=== PATIENT | female | born 1970 | race Caucasian/White ===

== ENCOUNTER 2017-01-10 16:05 | Outpatient (CLI) | payer OTHER ==
--- NOTE | 2017-01-12 10:10 | Mammography Report ---
DIGITAL BILATERAL SCREENING MAMMOGRAM: 01/10/2017 COMPARISON STUDY: Mammogram 11/25/2015. INDICATION: Screening mammography. TECHNIQUE: Routine CC and MLO projections were obtained of the breasts. FINDINGS: Parenchymal tissue within both breasts is extremely dense, which lowers the sensitivity of mammography; however, there are no dominant masses, suspicious microcalcifications, or secondary sig ns of malignancy. In comparison to the previous studies, there are no significant changes. There is a biopsy clip in the left breast. IMPRESSION: No mammographic evidence of malignancy. PLAN: Screening mammography is recommended annually. BIRADS CATEGORY 2 - BENIGN FINDINGS. STANDARD QUALIFYING STATEMENTS 1. This examination was reviewed with the aid of Computed-Aided Detection (CAD). 2. A negative or benign imaging report should not delay biopsy if clinically suspicious findings are present. Consider surgical consultation if warranted. More than 5% of cancers are not identified by i maging. 3. Dense breasts may obscure an underlying neoplasm. JOB #: [id number] EXT JOB #:[id number]
== END 2017-01-10 16:06 | disposition home or self-care (01) ==
LOC: DI 16:05
PROVIDERS: ATTEND Physician Assistant Medical
DX: Z12.31 Encounter for screening mammogram for malignant neoplasm of breast (principal)
CPT/HCPCS: 77067

== ENCOUNTER 2018-02-14 13:52 | Outpatient (CLI) | payer OTHER ==
--- NOTE | 2018-02-15 08:44 | Mammography Report ---
Reason: SCREENING MAMMO Procedure Date: 02/14/2018 Accession Number: [id number] / [id number] Procedure: CHRISSY - Screening Mammo w/Martin CPT Code: FULL RESULT: EXAM: Screening Mammo w/Martin DATE: 02/14/2018 2:21 PM CLINICAL HISTORY: Screening mammogram. History of left breast biopsy. TECHNIQUE: Bilateral CC and MLO views were obtained. COMPARISON: 01/10/2017 through 12/30/2009. FINDINGS: The breasts demonstrate heterogeneously dense fibroglandular parenchyma bilaterally. A biopsy clip is seen in the left breast. No suspicious masses, clustered microcalcifications, or regions of architectural distortion are identified. IMPRESSION: Benign findings RECOMMENDATION: Routine annual screening unless otherwise clinically indicated. BIRADS CATEGORY 2: Benign findings STANDARD QUALIFYING STATEMENTS: 1. This examination was not reviewed with the aid of Computer-Aided Detection (CAD). 2. A negative or benign imaging report should not preclude biopsy if clinically suspicious findings are present. 3. Dense breasts may obscure an underlying neoplasm. 4. This examination was reviewed with the aid of 3D breast imaging (tomosynthesis).
== END 2018-02-14 13:53 | disposition home or self-care (01) ==
LOC: DI 13:52
DX: Z12.31 Encounter for screening mammogram for malignant neoplasm of breast (principal)
CPT/HCPCS: 77063; 77067

== ENCOUNTER 2018-07-13 11:44 | Outpatient (CLI) | payer OTHER ==
--- NOTE | 2018-07-13 14:20 | XRAY Report ---
Reason: COUGH Procedure Date: 07/13/2018 Accession Number: [id number] / [id number] Procedure: WCP - Chest 2 View X-Ray CPT Code: 51487 FULL RESULT: EXAM: CHEST RADIOGRAPHY EXAM DATE: 07/13/2018 12:05 PM. CLINICAL HISTORY: COUGH. COMPARISON: None. TECHNIQUE: 2 views. FINDINGS: Lungs/Pleura: No focal opacities evident. No pleural effusion. No pneumothorax. Normal volumes. Mediastinum: Heart and mediastinal contours are unremarkable. Other: None. IMPRESSION: Normal 2-view chest radiography. RADIA
== END 2018-07-13 11:45 | disposition home or self-care (01) ==
LOC: DI.WCP 11:44
PROVIDERS: ATTEND Family Medicine
DX: R05 Cough (principal)
CPT/HCPCS: 71046

== ENCOUNTER 2019-06-11 08:07 | Outpatient (CLI) | payer BC, OTHER ==
[2019-06-11 12:21] LABS: BASOPHILS # (AUTO) 0.1 10^3/uL (0.0-0.1); BASOPHILS % (AUTO) 1.1 %; EOSINOPHILS # (AUTO) 0.2 10^3/uL (0.0-0.7); EOSINOPHILS % (AUTO) 4.3 %; HGB - HEMOGLOBIN 10.7 g/dL (12.0-16.0); LYMPHOCYTES # (AUTO) 1.5 10^3/uL (1.5-3.5); LYMPHOCYTES % (AUTO) 26.8 %; MEAN CORPUSCULAR HEMOGLOBIN 23.4 pg (27.0-31.0); MEAN CORPUSCULAR HGB CONC 31.7 g/dL (32.0-36.0); MONOCYTES # (AUTO) 0.6 10^3/uL (0.0-1.0); MONOCYTES % (AUTO) 10.5 %; NEUTROPHILS # (AUTO) 3.2 10^3/uL (1.5-6.6); NEUTROPHILS % (AUTO) 56.9 %; PLT - PLATELET COUNT 422 10^3/uL (130-450); RED BLOOD COUNT 4.57 10^6/uL (4.20-5.40); RED CELL DISTRIBUTION WIDTH 17.2 % (12.0-15.0); WHITE BLOOD COUNT 5.6 x10^3/uL (4.8-10.8)
[2019-06-11 12:37] LABS: ALBUMIN/GLOBULIN RATIO 1.3 (1.0-2.2); ALKALINE PHOSPHATASE 39 IU/L (42-121); ALT ALANINE AMINOTRANSFERASE 13 IU/L (10-60); AST ASPARTATE AMINOTRANSFERASE 18 IU/L (10-42); BILIRUBIN,TOTAL 0.9 mg/dL (0.2-1.0); BUN - BLOOD UREA NITROGEN 11 mg/dL (6-20); CALCIUM 9.1 mg/dL (8.5-10.3); CARBON DIOXIDE - CO2 26 mmol/L (21-32); CHLORIDE 105 mmol/L (101-111); CHOL/HDL RATIO 3.1 (<4.4); CHOLESTEROL 273 mg/dL; CREATININE 0.7 mg/dL (0.4-1.0); GLUCOSE 92 mg/dL (70-100); HDL CHOLESTEROL 87 mg/dL; LDL CHOLESTEROL,CALCULATED 165 mg/dL; LDL/HDL RATIO 1.9 (<4.4); SODIUM 139 mmol/L (135-145); TOTAL PROTEIN 7.2 g/dL (6.7-8.2); VLDL CHOLESTEROL 21 mg/dL
== END 2019-06-11 23:59 | disposition home or self-care (01) ==
LOC: LAB.WCP 08:07
PROVIDERS: ATTEND Physician Assistant Medical
DX: Z00.00 Encounter for general adult medical examination without abnormal findings (principal); E78.5 Hyperlipidemia, unspecified
CPT/HCPCS: 36415; 80053; 80061; 83721; 84443; 85025

== ENCOUNTER 2019-06-15 11:40 | Outpatient (CLI) | payer BC ==
[2019-06-15 13:45] LABS: H. PYLORIS ANTIGEN STL NEGATIVE (Negative)
== END 2019-06-15 23:59 | disposition home or self-care (01) ==
LOC: LAB.R 11:40
PROVIDERS: ATTEND Physician Assistant Medical
DX: K52.9 Noninfective gastroenteritis and colitis, unspecified (principal)
CPT/HCPCS: 83630; 87015; 87045; 87046; 87177; 87209; 87272; 87329; 87338; 87493

== ENCOUNTER 2019-08-15 08:00 | Outpatient (CLI) | payer BC ==
[2019-08-15 13:55] LABS: BASOPHILS # (AUTO) 0.1 10^3/uL (0.0-0.1); BASOPHILS % (AUTO) 1.2 %; EOSINOPHILS # (AUTO) 0.4 10^3/uL (0.0-0.7); EOSINOPHILS % (AUTO) 7.3 %; LYMPHOCYTES # (AUTO) 1.7 10^3/uL (1.5-3.5); LYMPHOCYTES % (AUTO) 34.7 %; MEAN CORPUSCULAR HGB CONC 28.5 g/dL (32.0-36.0); MEAN CORPUSCULAR VOLUME 73.7 fL (81.0-99.0); MEAN PLATELET VOLUME 10.1 fL (7.9-10.8); MONOCYTES # (AUTO) 0.5 10^3/uL (0.0-1.0); MONOCYTES % (AUTO) 10.8 %; NEUTROPHILS # (AUTO) 2.2 10^3/uL (1.5-6.6); NEUTROPHILS % (AUTO) 45.8 %; PLT - PLATELET COUNT 362 10^3/uL (130-450); RED BLOOD COUNT 4.76 10^6/uL (4.20-5.40); RED CELL DISTRIBUTION WIDTH 16.9 % (12.0-15.0); WHITE BLOOD COUNT 4.8 x10^3/uL (4.8-10.8)
[2019-08-15 14:03] LABS: CHOL/HDL RATIO 2.6 (<4.4); CHOLESTEROL 262 mg/dL; HDL CHOLESTEROL 102 mg/dL; LDL CHOLESTEROL,CALCULATED 141 mg/dL; LDL/HDL RATIO 1.4 (<4.4); VLDL CHOLESTEROL 19 mg/dL
[2019-08-15 14:09] LABS: FERRITIN 1.9 ng/mL (11.0-306.8)
[2019-08-15 14:15] LABS: FOLATE 21.68 ng/mL (5.90 - >24.8)
== END 2019-08-15 23:59 | disposition home or self-care (01) ==
LOC: LAB.WCP 08:00
PROVIDERS: ATTEND Physician Assistant Medical
DX: E78.5 Hyperlipidemia, unspecified (principal); D64.9 Anemia, unspecified
CPT/HCPCS: 36415; 80061; 82607; 82728; 82746; 83721; 85025

== ENCOUNTER 2020-01-02 07:00 | Outpatient (CLI) | payer BC ==
[2020-01-02 11:22] LABS: BASOPHILS # (AUTO) 0.1 10^3/uL (0.0-0.1); BASOPHILS % (AUTO) 1.1 %; EOSINOPHILS # (AUTO) 0.3 10^3/uL (0.0-0.7); LYMPHOCYTES # (AUTO) 1.3 10^3/uL (1.5-3.5); MEAN CORPUSCULAR HEMOGLOBIN 29.3 pg (27.0-31.0); MEAN CORPUSCULAR HGB CONC 32.9 g/dL (32.0-36.0); MEAN CORPUSCULAR VOLUME 88.9 fL (81.0-99.0); MONOCYTES # (AUTO) 0.5 10^3/uL (0.0-1.0); MONOCYTES % (AUTO) 9.9 %; NEUTROPHILS # (AUTO) 3.2 10^3/uL (1.5-6.6); NEUTROPHILS % (AUTO) 59.4 %; PLT - PLATELET COUNT 274 10^3/uL (130-450); RED BLOOD COUNT 4.78 10^6/uL (4.20-5.40); RED CELL DISTRIBUTION WIDTH 14.2 % (12.0-15.0); WHITE BLOOD COUNT 5.4 x10^3/uL (4.8-10.8)
[2020-01-02 12:11] LABS: % IRON SATURATION 21 % (20-50); IRON 83 ug/dL (28-170); TOTAL IRON BINDING CAPACITY 403 ug/dL (250-450); TRANSFERRIN 288 mg/dL (192-382)
== END 2020-01-02 23:59 | disposition home or self-care (01) ==
LOC: LAB.WCP 07:00
PROVIDERS: ATTEND Physician Assistant Medical
DX: D64.9 Anemia, unspecified (principal)
CPT/HCPCS: 36415; 82728; 83540; 84466; 85025

== ENCOUNTER 2020-01-20 08:00 | Outpatient (CLI) | payer BC ==
[2020-01-20 17:59] LABS: BASOPHILS # (AUTO) 0.1 10^3/uL (0.0-0.1); BASOPHILS % (AUTO) 0.6 %; EOSINOPHILS # (AUTO) 0.2 10^3/uL (0.0-0.7); LYMPHOCYTES # (AUTO) 1.8 10^3/uL (1.5-3.5); LYMPHOCYTES % (AUTO) 15.9 %; MEAN CORPUSCULAR HEMOGLOBIN 29.3 pg (27.0-31.0); MEAN CORPUSCULAR HGB CONC 32.9 g/dL (32.0-36.0); MEAN CORPUSCULAR VOLUME 89.1 fL (81.0-99.0); MEAN PLATELET VOLUME 9.7 fL (7.9-10.8); MONOCYTES % (AUTO) 8.9 %; NEUTROPHILS # (AUTO) 8.1 10^3/uL (1.5-6.6); NEUTROPHILS % (AUTO) 72.2 %; PLT - PLATELET COUNT 308 10^3/uL (130-450); RED BLOOD COUNT 4.78 10^6/uL (4.20-5.40); RED CELL DISTRIBUTION WIDTH 13.9 % (12.0-15.0); WHITE BLOOD COUNT 11.3 x10^3/uL (4.8-10.8)
[2020-01-20 18:05] LABS: ALBUMIN 4.4 g/dL (3.2-5.5); ALBUMIN/GLOBULIN RATIO 1.4 (1.0-2.2); BILIRUBIN,TOTAL 1.4 mg/dL (0.2-1.0); CALCIUM 9.1 mg/dL (8.5-10.3); CREATININE 0.8 mg/dL (0.4-1.0); CRP - C-REACTIVE PROTEIN 2.9 mg/dL (0-1.0); TOTAL PROTEIN 7.5 g/dL (6.7-8.2)
== END 2020-01-20 23:59 | disposition home or self-care (01) ==
LOC: LAB.WCP 08:00
PROVIDERS: ATTEND Family Medicine
DX: R10.9 Unspecified abdominal pain (principal)
CPT/HCPCS: 36415; 80053; 85025; 85651; 86140

== ENCOUNTER 2020-01-23 17:03 | Outpatient (CLI) | payer BC ==
[2020-01-23] MEDS ORDERED: IOVERSOL 320 100 ML VIAL IVP ONE ×2 (17:15→19:29)
[2020-01-23] MEDS ORDERED: IOVERSOL 320 50 ML VIAL ONE (17:15)
--- NOTE | 2020-01-23 18:26 | CT Report ---
PROCEDURE: Abdomen/Pelvis W INDICATIONS: ABD PAIN, RLQ CONTRAST: IV CONTRAST: Optiray 320 ml: 100 PO CONTRAST: Optiray 320 ml50 TECHNIQUE: After the administration of oral and IV contrast, 5 mm thick sections acquired from the diaphragms to the symphysis. 5 mm thick coronal and sagittal reformats were acquired. For radiation dose reducti on, the following was used: automated exposure control, adjustment of mA and/or kV according to carson ent size. COMPARISON: Ultrasound abdomen 09/03/2014 FINDINGS: Image quality: Excellent. ABDOMEN: Lung bases: Lung bases are clear. Heart size is normal. Solid organs: Liver and spleen are normal in size and enhancement. Gallbladder is contracted and gr ossly unremarkable Biliary system is non dilated. Pancreas enhances normally. No adrenal nodules. Kidneys demonstrate normal size and enhancement, without hydronephrosis. Peritoneum and bowel: Bowel loops are nonobstructive. Portions of the appendix are enlarged measurin g 8 mm. Appendiceal stranding is present. No evidence of perforation or periappendiceal abscess. No free flui d or air. Nodes and vessels: No retroperitoneal or mesenteric adenopathy by size criteria. Aorta and inferior vena cava are normal in size. Miscellaneous: No ventral hernias. PELVIS: Genitourinary: Bladder wall thickness is normal. Uterus is markedly enlarged with areas of loculati on. Miscellaneous: No inguinal hernias or adenopathy. Bones: No suspicious bony lesions. No vertebral body compression fractures. IMPRESSION: 1. Portions of the appendix are enlarged with periappendiceal inflammation most consistent with appen dicitis. No evidence of perforation. 2. Enlarged lobulated uterus suggestive of fibroids. Pelvic ultrasound is recommended for further pamela luation. The above findings were discussed with Dr. Merry Gomez on 01/23/2020 at 6:22 PM. Reviewed by: Luz Martinez MD on 01/23/2020 6:25 PM PST Approved by: Luz Martinez MD on 01/23/2020 6:25 PM PST Station ID: [id number]
== END 2020-01-23 17:04 | disposition home or self-care (01) ==
LOC: DI 17:03
PROVIDERS: ATTEND Family Medicine
DX: R93.5 Abnormal findings on diagnostic imaging of other abdominal regions, including retroperitoneum (principal); N85.2 Hypertrophy of uterus
CPT/HCPCS: 74177

== ENCOUNTER 2020-01-23 18:31 | Day surgery (SDC) | payer BC ==
--- NOTE | 2020-01-23 18:35 | ED Physician Documentation ---
PD HPI ABD PAIN - Stated complaint Stated Complaint: ABD PX - History obtained from History obtained from: Patient - History of Present Illness Timing - onset: How many days ago (3) Timing - duration: Days (3) Timing - details: Gradual onset (worst pain Monday (3 days ago) but continues still. Seen in office Monday with lab showing elevated WBC. Seen today with persistent tender RLQ, and had outpt CT, with result of acute appendicitis. PMD notified and had her come from DI to ER. Last ate at 1 pm.), Still present Quality: Aching, Pain Location: RLQ Radiation: No: Chest, Lower back Improved by: No: Eating Worsened by: No: Eating Associated symptoms: Nausea. No: Fever, Vomiting, Diarrhea Recently seen: Clinic (today in office) Review of Systems Constitutional: denies: Fever Nose: denies: Rhinorrhea / runny nose, Congestion Throat: denies: Sore throat Respiratory: denies: Cough GI: reports: Abdominal Pain. denies: Vomiting, Diarrhea : denies: Dysuria PD PAST MEDICAL HISTORY - Past Medical History Past Medical History: No Cardiovascular: None Respiratory: None GI: None PD ED PE NORMAL - Vitals Vital signs reviewed: Yes - General General: Alert and oriented X 3, Well developed/nourished - Abdomen Abdomen: Soft, Non distended, Other (RLQ tender with guarding. ) - Derm Derm: Normal color, Warm and dry - Extremities Extremities: Normal ROM s pain - Neuro Neuro: Alert and oriented X 3, No motor deficit, Normal speech - Psych Psych: Normal mood Results - Vitals Vitals: Vital Signs - 24 hr 01/23/20 01/23/20 18:35 18:59 Temperature 36.6 C Heart Rate 54 L Respiratory 18 Rate Blood Pressure 155/78 H O2 Saturation 97 Oxygen O2 Source Room air - Labs Labs: Laboratory Tests 01/23/20 19:15 WBC 8.2 RBC 4.31 Hgb 12.7 Hct 38.8 MCV 90.0 MCH 29.5 MCHC 32.7 RDW 13.9 Plt Count 305 MPV 9.6 Neut # (Auto) 4.7 Lymph # (Auto) 2.2 [place] # (Auto) 0.8 Eos # (Auto) 0.3 Baso # (Auto) 0.1 Absolute Nucleated RBC 0.00 Nucleated RBC % 0.0 PD MEDICAL DECISION MAKING - ED course Complexity details: considered differential (Contacted by her primary care who had gotten a call with diagnosis of appendicitis and referred the patient to the ER. At this point we will initiate IVs and get basic labs and presumably Covid test in preparation for appendectomy. I talked with Dr. Dugan who said she would come in to see the pt), d/w patient, d/w peoples[facility] consultant (Dr. Gill who will come in and see the patient.) ED course: Patient would like to talk with the surgeon prior to initiating the OR crew. Departure - Departure Disposition: ED Transfer to [facility] Clinical Impression: RLQ abdominal pain Appendicitis Qualifiers: Appendicitis type: acute appendicitis Acute appendicitis type: unspecified acute appendicitis type Qualified Code(s): K35.80 - Unspecified acute appendicitis Condition: Stable Record reviewed to determine appropriate education?: Yes
[2020-01-23] MEDS ORDERED: SODIUM CHLORIDE 0.9% 1,000 ML IV STA (18:47)
[2020-01-23] MEDS ORDERED: SUGAMMADEX 200 MG/2 ML VIAL IVP ONE ×2 (19:08→21:19)
[2020-01-23] MEDS ORDERED: MIDAZOLAM 2 MG/2 ML VIAL IVP ONE (19:08)
[2020-01-23] MEDS ORDERED: ROCURONIUM 50 MG/5 ML VIAL IVP ONE (19:08)
[2020-01-23] MEDS ORDERED: SUCCINYLCHOLINE 200 MG/10 ML VIAL IVP ONE (19:08)
[2020-01-23] MEDS ORDERED: fentaNYL 100 MCG/2 ML VIAL IVP ONE (19:08)
[2020-01-23] MEDS ORDERED: HYDROmorphone 1 MG/ML CARPUJECT IVP ONE (19:08)
[2020-01-23] MEDS ORDERED: DEXAMETHASONE 4 MG/ML VIAL IVP ONE (19:08)
[2020-01-23] MEDS ORDERED: ONDANSETRON 4 MG/2 ML VIAL IVP ONE (19:08)
[2020-01-23] MEDS ORDERED: PROPOFOL 200 MG/20 ML VIAL IVP ONE (19:08)
[2020-01-23] MEDS ORDERED: ACETAMINOPHEN 1,000 MG/100 ML 100 ML IV ONE (19:08)
[2020-01-23 19:22] LABS: BASOPHILS # (AUTO) 0.1 10^3/uL (0.0-0.1); BASOPHILS % (AUTO) 0.9 %; EOSINOPHILS # (AUTO) 0.3 10^3/uL (0.0-0.7); EOSINOPHILS % (AUTO) 4.2 %; HGB - HEMOGLOBIN 12.7 g/dL (12.0-16.0); LYMPHOCYTES # (AUTO) 2.2 10^3/uL (1.5-3.5); MEAN CORPUSCULAR HEMOGLOBIN 29.5 pg (27.0-31.0); MEAN CORPUSCULAR HGB CONC 32.7 g/dL (32.0-36.0); MEAN PLATELET VOLUME 9.6 fL (7.9-10.8); MONOCYTES # (AUTO) 0.8 10^3/uL (0.0-1.0); MONOCYTES % (AUTO) 9.8 %; NEUTROPHILS # (AUTO) 4.7 10^3/uL (1.5-6.6); NEUTROPHILS % (AUTO) 57.6 %; PLT - PLATELET COUNT 305 10^3/uL (130-450); RED BLOOD COUNT 4.31 10^6/uL (4.20-5.40); RED CELL DISTRIBUTION WIDTH 13.9 % (12.0-15.0); WHITE BLOOD COUNT 8.2 x10^3/uL (4.8-10.8)
[2020-01-23] MEDS ORDERED: PIPERACILLIN/TAZOBACTAM 3.375 GM in SODIUM CHLORIDE 0.9% MINIBAG 100 ML IV STA (19:25)
[2020-01-23] MEDS ORDERED: oxyCODONE/ACET 5/325 Prepack 4 PO STA (19:25)
[2020-01-23] MEDS ORDERED: ONDANSETRON ODT 4 MG Prepack 2 TL PRN (19:26)
--- NOTE | 2020-01-23 19:27 | HISTORY & PHYSICAL EXAMINATION ---
HPI - Admitted From Admitted from: ED - History Obtained From Records Reviewed: Other (ER MD) History obtained from: Patient Exam limitations: No limitations - History of Present Illness Severity at the worst: reports: Mild Pain Quality: reports: Sharp, Aching, Cramping Context-Pain started w/: reports: Rest Timing: reports: Gradual onset Duration: reports: Days: (about 4 days) Improved with: reports: Nothing Worsened by: reports: Movement Associated symptoms: denies: Nausea, Vomiting HPI Comment/Other: Judy is a pleasant 50-year-old lady who reports she began having abdominal pain Monday evening or Monday. She was seen by Dr. Gomez today after she did not improve. Dr. Gomez ordered a CT scan of the abdomen pelvis that revealed acute appendicitis and the patient was instructed to come to the emergency department. I have been consulted for definitive management. PMH/PSH - Past Medical History Cardiovascular: positive: None Respiratory: positive: None GI: positive: None MRSA Hx?: No Social & Family Hx - Living Situation Living Arrangement: At home Living Situation: With spouse/s.o. - Social History Does the pt smoke?: No Review of Systems - Constitutional Constitutional: reports: Poor appetite - Eyes Eyes: denies: Pain, Irritation - Ears, Nose & Throat Ears, Nose & Throat: denies: Tinnitus, Vertigo - Cardiovascular Cariovascular: denies: Irregular heart rate, Palpitations - Respiratory Respiratory: denies: Cough, Sputum production, Wheezing - Gastrointestinal Gastrointestinal: reports: Abdominal pain. denies: Constipation, Diarrhea, Change in bowel habits, Rectal bleeding, Black stools, Bloody stools, Bile emesis - Genitourinary Genitourinary: denies: Frequency, Urgency - Musculoskeletal Musculoskeletal: denies: Muscle pain, Back pain - Integumentary Integumentary: denies: Rash, Lesions - Neurological Neurological: denies: General weakness, Focal weakness - Psychiatric Psychiatric: denies: Depression, Anxiety - Hematologic/Lymphatic Hematologic/Lymphatic: denies: Anemia, Bruising - All Other Systems All Other Systems: reports: Reviewed and negative Exam - Vital Signs Reviewed Vital Signs: Yes Vital Signs: Vital Signs x48h Temp Pulse Resp BP Pulse Ox 01/23/20 18:59 54 L 18 155/78 H 97 01/23/20 18:35 36.6 C - Physical Exam General Appearance: positive: No acute distress, Alert Eyes Bilateral: positive: Normal inspection, PERRL, EOMI ENT: positive: ENT inspection nml, Pharynx nml, No signs of dehydration Neck: positive: Nml inspection, Thyroid nml, No JVD, Trachea midline Respiratory: positive: Chest non-tender, No respiratory distress, Breath sounds nml Cardiovascular: positive: Regular rate & rhythm, No murmur, No gallop Peripheral Pulses: positive: 1+ Abdomen: positive: Tenderness Results - Lab Results Fish Bones: 01/23/20 19:15 Other Lab Results: Lab Results x24hrs 01/23/20 Range/Units 19:15 WBC 8.2 (4.8-10.8) x10^3/uL RBC 4.31 (4.20-5.40) 10^6/uL Hgb 12.7 (12.0-16.0) g/dL Hct 38.8 (37.0-47.0) % MCV 90.0 (81.0-99.0) fL MCH 29.5 (27.0-31.0) pg MCHC 32.7 (32.0-36.0) g/dL RDW 13.9 (12.0-15.0) % Plt Count 305 (130-450) 10^3/uL MPV 9.6 (7.9-10.8) fL Neut # (Auto) 4.7 (1.5-6.6) 10^3/uL Lymph # (Auto) 2.2 (1.5-3.5) 10^3/uL [place] # (Auto) 0.8 (0.0-1.0) 10^3/uL Eos # (Auto) 0.3 (0.0-0.7) 10^3/uL Baso # (Auto) 0.1 (0.0-0.1) 10^3/uL Absolute Nucleated RBC 0.00 x10^3/uL Nucleated RBC % 0.0 /100WBC - Diagnostic Imaging Results Diagnostic Imaging Results: positive: Final report reviewed Diagnostic Imaging Results Comments: 1. Portions of the appendix are enlarged with periappendiceal inflammation most consistent with appendicitis. No evidence of perforation. 2. Enlarged lobulated uterus suggestive of fibroids. Pelvic ultrasound is recommended for further evaluation. The above findings were discussed with Dr. eMrry Gomez on 01/23/2020 at 6:22 PM. Reviewed by: Luz Martinez MD on 01/23/2020 6:25 PM PST Approved by: Luz Martinez MD on 01/23/2020 6:25 PM PST Impression/Plan - Problem List Problem List: Acute appendicitis in the setting of a very healthy 50-year-old lady. We discussed the risks and benefits of laparoscopy with appendectomy including but not limited to infection, bleeding, damage to other organs or structures in the area, unexpected findings or results, nausea or vomiting, stroke or heart attack. After careful consideration, the patient is expressed desire to complete the procedure.
[2020-01-23 19:37] LABS: CALCIUM 9.4 mg/dL (8.5-10.3); CREATININE 0.9 mg/dL (0.4-1.0)
--- NOTE | 2020-01-23 20:00 | ANESTHESIA ---
Pre-Anesthesia VS, & Labs - Diagnosis Acute appendicitis - Procedure Lap Appy Vital Signs: Temp Pulse Resp BP Pulse Ox 36.6 C 54 L 18 155/78 H 97 01/23/20 18:35 01/23/20 18:59 01/23/20 18:59 01/23/20 18:59 01/23/20 18:59 Height: 5 ft 6 in Weight (kg): 74.389 kg Body Mass Index: 26.4 BMI Classification: Overweight - NPO Last Fluid Intake: 1700-CT oral contrast Last Food Intake: 1200 - Is Patient ?: No - Lab Results Current Lab Results: Laboratory Tests 01/23/20 19:15: Sodium 135, Potassium 3.8, Chloride 101, Carbon Dioxide 24, Anion Gap 10.0, BUN 16, Creatinine 0.9, Estimated GFR (MDRD) 66 L, Glucose 102 H , Calcium 9.4 01/23/20 19:15: WBC 8.2, RBC 4.31, Hgb 12.7, Hct 38.8, MCV 90.0, MCH 29.5, MCHC 32.7, RDW 13.9, Plt Count 305, MPV 9.6, Neut # (Auto) 4.7, Lymph # (Auto) 2.2, [place] # (Auto) 0.8, Eos # (Auto) 0.3, Baso # (Auto) 0.1, Absolute Nucleated RBC 0 .00, Nucleated RBC % 0.0 Fish Bones: 01/23/20 19:15 01/23/20 19:15 Home Medications and Allergies Active Medications Ondansetron HCl (Zofran Odt Prepack 2) 4 mg TL Q6HR PRN PRN Reason: Nausea / Vomiting Last Admin: 01/23/20 19:47 Dose: 4 mg Documented by: Iron, Vit D, red rice yeast Allergies/Adverse Reactions: Allergies Allergy/AdvReac Type Severity Reaction Status Date / Time No Known Drug Allergies Allergy Verified 01/23/20 19:35 Anes History & Medical History - Anesthetic History Family history of Anesthesia Complications: Denies Family history of Malignant Hyperthermia: Denies - Medical History Cardiovascular: reports: None Pulmonary: reports: None Gastrointestinal: reports: None Urinary: reports: None Neuro: reports: None Musculoskeletal: reports: None Endocrine/Autoimmune: reports: None Blood Disorders: reports: Anemia Skin: reports: None Smoking Status: Never smoker Psychosocial: reports: Other (PTSD) History of Cancer?: No - Surgical History General: Colonoscopy Exam General: Alert, Oriented x3, Cooperative, No acute distress Dental: WNL Mouth Openin Fingerbreadth Neck Mobility: Normal Mallampati classification: I Thyromental Distance: 4-6 cm Mental/Cognitive Status: Alert/Oriented X3, Normal for patient Plan Anesthesia Type: General (RSI) Consent for Procedure(s) Verified and Reviewed: Yes Code Status: Attempt Resuscitation ASA classification: 1-Healthy patient Is this case an emergency?: Yes
[2020-01-23] MEDS ORDERED: ATROPINE ABBOJECT 1 MG/10 ML SYRINGE IVP PRN (20:01)
[2020-01-23] MEDS ORDERED: ONDANSETRON 4 MG/2 ML VIAL IVP PRN ×2 (20:01→21:22)
[2020-01-23] MEDS ORDERED: MORPHINE 2 MG/ML CARPUJECT IVP PRN (20:01)
[2020-01-23] MEDS ORDERED: HYDROmorphone 0.5 MG/0.5 ML SYRINGE IVP PRN (20:01)
[2020-01-23] MEDS ORDERED: NALOXONE 0.4 MG/ML VIAL IVP PRN (20:01)
[2020-01-23] MEDS ORDERED: fentaNYL 100 MCG/2 ML VIAL IVP PRN (20:01)
[2020-01-23] MEDS ORDERED: BUPIVACAINE 0.5% PF 30 ML VIAL ONE (20:28)
[2020-01-23] MEDS ORDERED: LIDOCAINE 1%-EPI 1:100000 20 ML MDV ONE (20:28)
[2020-01-23] MEDS ORDERED: BUPIVACAINE 0.5% PF 30 ML VIAL INFIL ONE ×2 (20:58)
[2020-01-23] MEDS ORDERED: LIDOCAINE 1%-EPI 1:100000 20 ML MDV SUBQ ONE ×2 (20:58)
[2020-01-23] MEDS ORDERED: LACTATED RINGERS 1,000 ML IV SCH (21:00)
[2020-01-23] MEDS ORDERED: ACETAMINOPHEN 325 MG TABLET PO PRN (21:22)
[2020-01-23] MEDS ORDERED: IBUPROFEN 600 MG TABLET PO PRN (21:22)
[2020-01-23] MEDS ORDERED: oxyCODONE 5 MG TABLET PO PRN (21:22)
--- NOTE | 2020-01-23 21:22 | OPERATIVE REPORT ---
Operative Report - General Procedure Date: 01/23/20 Planned Procedure: Laparoscopy with appendectomy Pre-Op Diagnosis: Acute appendicitis Procedure Performed: Laparoscopy with appendectomy Post Op Diagnosis: Acute appendicitis without evidence of perforation - Procedure Note Primary Surgeon: Jairo Anesthesia Provider: MELIDA Billings Anesthesia Technique: General ET tube, Local Pathology: Appendix to pathology in formalin Estimated Blood Loss (mL): 5 Findings: Acutely inflammed appendix without evidence of perforation Complications: None apparent - Other Other Information/Narrative: After obtaining informed consent, the patient is brought to the operating room and placed in the supine position on the operating table. Following successful induction of general endotracheal anesthesia, appropriate padding of all bony prominences, and placement of appropriate monitors, the abdomen was prepped and draped in the standard surgical fashion. A timeout was held per scope protocol. All elements of the surgical safety checklist were followed before, during, and after the procedure. Following infiltration with local anesthetic to create a field block, an incision was created inferior to the umbilicus and carried down through the skin and subcutaneous tissue to reveal the fascia below. 2-0 Vicryl retention sutures were placed on either side of the midline and the abdomen was entered under direct vision using a 15 blade scalpel. A 10 mm blunt Owens balloon trocar was placed in the abdominal cavity and it was insufflated to 15 mmHg pressure. The patient was placed in Trendelenburg position with the left side rotated toward the floor. The camera was placed in the abdominal cavity and we immediately visualized the cecum in the right lower quadrant. It was rotated me dially to reveal a somewhat dilated and turgid appendix. The appendix was grasped and elevated revealing its attachment to the cecum. A window was created in the mesoappendix at this location. A laparoscopic stapling device was used to ligate the appendix and liberated from its attachment to the cecum. An additional load of the device were used to divide its mesentery.The appendix was placed in an Endo Catch bag and removed via the umbilical port with a camera in the epigastric position. The camera was replaced in the operative site examined. It was irrigated with warm saline solution and aspirated free of all fluid and particulate matter. The table was flattened and the abdomen evaluated once again. The trochars were removed under direct vision and abdomen was desufflated. The umbilical incision was closed with interrupted Vicryl suture and Monocryl stitches were placed in the skin. All sponge, needles, and instrument counts were correct at the conclusion of the case. The patient was allowed to wake from anesthesia without difficulty and taken to the postanesthesia care unit in good condition.
[2020-01-23] MEDS ORDERED: LACTATED RINGERS 1,000 ML IV ONE (21:30)
--- NOTE | 2020-01-23 21:42 | ANESTHESIA POST OP EVALUATION ---
Anesthesia Post Eval - Post Anesthesia Eval Vitals: Last Vital Signs Temp 36.5 C 01/23/20 21:35 Pulse 65 01/23/20 21:35 Resp 15 01/23/20 21:35 BP 138/75 H 01/23/20 21:35 Pulse Ox 100 01/23/20 21:35 CV Function Including HR & BP: positive: Stable Pain Control: positive: Satisfactory Nausea & Vomiting: positive: Negative Mental Status: positive: Baseline Respiratory Status: Airway Patent Hydration Status: Satisfactory Anesthesia Complications: positive: None
[2020-01-24 00:09] VITALS: BP 122/75
== END 2020-01-24 00:37 | disposition home or self-care (01) ==
LOC: ED 18:31 → SDS 19:07 → MS2 21:53 → SDS 01-24 00:37
PROVIDERS: ATTEND Surgery
PROC: 0DTJ4ZZ Resection of Appendix, Percutaneous Endoscopic Approach (ICD-10-PCS; principal; 2020-01-23 20:00)
DX: K35.80 Unspecified acute appendicitis (principal); Z20.828 Contact with and (suspected) exposure to other viral communicable diseases; R93.5 Abnormal findings on diagnostic imaging of other abdominal regions, including retroperitoneum; N85.2 Hypertrophy of uterus
CPT/HCPCS: 36415; 44970; 74177; 80048; 85025; 87635; 96365; 99284; 99285; A9270; J0131; J0330; J1170; J7120; Q9967; 87086

== ENCOUNTER 2020-02-05 11:35 | Emergency (ER) | payer BC ==
[2020-02-05 12:18] LABS: BILIRUBIN,URINE NEGATIVE (NEGATIVE); GLUCOSE, URINE (UA) NEGATIVE (NEGATIVE); KETONES,URINE (UA) NEGATIVE (NEGATIVE); LEUKOCYTE ESTERASE, URINE NEGATIVE (NEGATIVE); NITRITE,URINE NEGATIVE (NEGATIVE); OCCULT BLOOD,URINE SMALL (NEGATIVE); PH,URINE 5.5 PH (5.0-7.5); PROTEIN,URINE NEGATIVE (NEGATIVE); UROBILINOGEN,URINE 0.2 (NORMAL) E.U./dL (NORMAL)
[2020-02-05 12:19] LABS: CLARITY,URINE CLEAR (CLEAR)
[2020-02-05 12:21] LABS: HCG UR QUAL NEGATIVE
--- NOTE | 2020-02-05 12:28 | ED Physician Documentation ---
PD HPI ABD PAIN - Stated complaint Stated Complaint: ABDOMINAL PX - Chief complaint Chief Complaint: Abd Pain - History obtained from History obtained from: Patient - History of Present Illness Timing - onset: How many days ago (1-2) Timing - duration: Days (Have lower abdominal crampy pain and also isolated pain in the right lower quadrant [address] scan showed appendicitis. She had appendectomy and had been having some pains postoperatively which taper down and improved. She was feeling better and now cramping lower abdominal pain 2 days.) Timing - details: Gradual onset, Still present, Waxing and waning Quality: Cramping, Aching, Pain Location: RLQ, Suprapubic, LLQ Radiation: No: Left flank, Right flank Improved by: No: Eating Worsened by: Moving, Palpation. No: Eating Associated symptoms: Nausea, Loss of appetite. No: Fever, Vomiting, Diarrhea, Constipation, Dysuria, Weight loss Similar symptoms before: Diagnosis (CT scan 2 weeks ago had shown a very enlarged uterus with fibroids but also acute appendicitis. The appendectomy was done and the patient was going to address the enlarged uterus with her primary care in an upcoming appointment.) Recently seen: Surgery (2 weeks ago, here by Dr. Gill, without complications.) Review of Systems Constitutional: denies: Fever, Chills, Myalgias Nose: denies: Rhinorrhea / runny nose, Congestion Throat: denies: Sore throat Respiratory: denies: Cough GI: reports: Abdominal Pain, Nausea. denies: Vomiting, Constipation (did not even have constipation post op.), Diarrhea : reports: Frequency, Irregular menses (for the past year or more, with periods every 3 months or so. Heavier bleeding and cramps with those. Worse recently.). denies: Dysuria Skin: denies: Rash Musculoskeletal: denies: Neck pain, Back pain Neurologic: denies: Generalized weakness, Near syncope PD PAST MEDICAL HISTORY - Past Medical History Cardiovascular: None Respiratory: None Neuro: None Endocrine/Autoimmune: None GI: None : None Musculoskeletal: None Derm: None - Past Surgical History General: Colonoscopy - Present Medications Home Medications: Ambulatory Orders Medication Instructions Recorded Confirmed Ondansetron Odt [Zofran Odt] 4 mg TL Q6H PRN #10 tablet 01/23/20 Ondansetron Odt [Zofran Odt] 4 mg TL Q6H PRN #10 tablet 01/23/20 oxyCODONE [Roxicodone] 5 mg PO Q4-6H PRN #14 tablet 01/23/20 oxyCODONE [Roxicodone] 5 mg PO Q4H PRN #14 tablet 01/23/20 Hydrocodone/Acetaminophen [[place] 1 each PO Q6H PRN #20 tablet 02/05/20 5-325 Tablet] Medroxyprogesterone Acetate 10 mg PO DAILY #5 tablet 02/05/20 [Provera] Naproxen [EC-Naproxen] 500 mg PO BID #20 tablet. 02/05/20 - Allergies Allergies/Adverse Reactions: Allergies Allergy/AdvReac Type Severity Reaction Status Date / Time No Known Drug Allergies Allergy Verified 02/05/20 12:05 - Social History Does the pt smoke?: No Smoking Status: Never smoker PD ED PE NORMAL - Vitals Vital signs reviewed: Yes - General General: Alert and oriented X 3, Well developed/nourished, Other (appears uncomfortable due to lower abd pain. ) - Neck Neck: Supple, no meningeal sign, No adenopathy - Cardiac Cardiac: RRR, No murmur - Respiratory Respiratory: Clear bilaterally - Abdomen Abdomen: Normal bowel sounds, Soft, Non distended, No organomegaly, Other (healing laparoscopic wounds without signs of infection. ) - Female Female : Deferred - Back Back: No CVA TTP - Derm Derm: Normal color, Warm and dry - Extremities Extremities: No tenderness to palpate, Normal ROM s pain, No edema, No calf tenderness / cord - Neuro Neuro: Alert and oriented X 3, No motor deficit, Normal speech Results - Vitals Vitals: Vital Signs - 24 hr 02/05/20 02/05/20 02/05/20 11:57 13:00 15:18 Temperature 37.2 C 37.2 C Heart Rate 69 58 L 58 L Respiratory 18 16 12 Rate Blood Pressure 131/73 H 100/74 163/87 H O2 Saturation 100 97 99 02/05/20 02/05/20 02/05/20 15:30 16:00 17:00 Temperature Heart Rate 59 L 57 L 52 L Respiratory 16 16 16 Rate Blood Pressure 136/90 H 140/85 H 127/85 H O2 Saturation 99 97 96 02/05/20 02/05/20 02/05/20 18:00 19:50 21:00 Temperature 37.2 C 37.2 C Heart Rate 51 L 50 L 52 L Respiratory 16 18 18 Rate Blood Pressure 129/77 131/91 H 130/81 H O2 Saturation 95 97 98 02/05/20 21:25 Temperature 37.2 C Heart Rate 52 L Respiratory 19 Rate Blood Pressure 130/81 H O2 Saturation 98 Oxygen O2 Source Room air - Labs Labs: Laboratory Tests 02/05/20 02/05/20 02/05/20 12:09 12:26 12:26 WBC 11.4 H RBC 4.85 Hgb 14.3 Hct 43.4 MCV 89.5 MCH 29.5 MCHC 32.9 RDW 13.8 Plt Count 345 MPV 9.2 Neut # (Auto) 8.5 H Lymph # (Auto) 1.7 [place] # (Auto) 0.7 Eos # (Auto) 0.4 Baso # (Auto) 0.1 Absolute Nucleated RBC 0.00 Nucleated RBC % 0.0 Sodium 140 Potassium 4.1 Chloride 104 Carbon Dioxide 24 Anion Gap 12.0 BUN 11 Creatinine 0.9 Estimated GFR (MDRD) 66 L Glucose 97 Calcium 9.9 Total Bilirubin 1.6 H AST 15 ALT 16 Alkaline Phosphatase 54 Total Protein 8.0 Albumin 4.3 Globulin 3.7 Albumin/Globulin Ratio 1.2 Lipase 26 Urine Color LT. YELLOW Urine Clarity CLEAR Urine pH 5.5 Ur Specific Fate <=1.005 Urine Protein NEGATIVE Urine Glucose (UA) NEGATIVE Urine Ketones NEGATIVE Urine Occult Blood SMALL H Urine Nitrite NEGATIVE Urine Bilirubin NEGATIVE Urine Urobilinogen 0.2 (NORMAL) Ur Leukocyte Esterase NEGATIVE Urine RBC 0-5 Urine WBC 0-3 Ur Squamous Epith Cells RARE Squamous Urine Bacteria Few Ur Microscopic Review INDICATED Urine Culture Comments NOT INDICATED Urine HCG, Qual NEGATIVE - Rads (name of study) abd CT Radiology: Prelim report reviewed (Status post appendectomy. No acute postoperative abnormalities. Seen again is the quite enlarged uterus with fibroids, the largest measuring 10 cm. No free fluid in the pelvis.), See rad report pelvic U/S Radiology: Prelim report reviewed, See rad report, Other (done at request of Dr. Lema - to better eval for treatment options/ surgical potential. ) PD MEDICAL DECISION MAKING - ED course Complexity details: reviewed results (No postoperative complications seen on the CT scan or urine. She again has a largest uterus with very large fibroids measuring up to 10 cm. This had been a new finding recently and has not yet seen gynecology.), re-evaluated patient, considered differential, d/w patient, d/w access consultant (talked with Dr. Gill, since pt was supposed to be in f/u office appt, and relayed that post op appears okay. Referring to [facility]. I talked with Dr. Lema, who advised NSAIDs, pain meds, and could consider Provera if pt wanted. To follow up in office. ) ED course: CT and labs to ensure no post op complications. Normal findings except for prior fibroids identified again. Is pushing against bladder. Presume this is cause of the pain with large fibroids at time of her period with some bleeding. Bleeding not excessive. Consult with [facility] and asked to get U/S. It did take awhile for [facility] [facility] consult as she was in surgery. Prolonged ED stay due to initial CT, results, [facility] [facility] to get out of surgery, consult by phone, and then U/S. Pt kept apprised of steps and was understanding. Departure - Departure Disposition: 01 Home, Self Care Clinical Impression: Lower abdominal pain Uterine fibroid Qualifiers: Uterine leiomyoma location: unspecified location Qualified Code(s): D25.9 - Leiomyoma of uterus, unspecified Condition: Stable Instructions: ED Fibroids Follow-Up: Merry Gomez DO [Primary Care Provider] - Marguerite Lema MD [Provider Admit Priv/Credential] - Prescriptions: Naproxen [EC-Naproxen] 500 mg PO BID #20 tablet. Hydrocodone/Acetaminophen [[place] 5-325 Tablet] 1 each PO Q6H PRN #20 tablet PRN Reason: Pain Medroxyprogesterone Acetate [Provera] 10 mg PO DAILY #5 tablet Comments: Use the anti-inflammatories as directed. Add Tylenol or hydrocodone as needed for worse pain. The wall taper helper also suggested the Provera daily for the next several days. Call the gynecology office tomorrow for an appointment in the next several days or early next week. Return if worsening of pain despite medicines. Expect some vaginal bleeding still over the next few days. Discharge Date/Time: 02/05/20 21:43
[2020-02-05 12:31] LABS: BACTERIA,URINE Few /HPF (None Seen); RBC,URINE 0-5 /HPF (0-5); SQUAMOUS EPITHELIAL CELL,UR RARE Squamous (<= Few)
[2020-02-05 12:33] LABS: BASOPHILS # (AUTO) 0.1 10^3/uL (0.0-0.1); BASOPHILS % (AUTO) 0.6 %; EOSINOPHILS # (AUTO) 0.4 10^3/uL (0.0-0.7); EOSINOPHILS % (AUTO) 3.5 %; HGB - HEMOGLOBIN 14.3 g/dL (12.0-16.0); LYMPHOCYTES # (AUTO) 1.7 10^3/uL (1.5-3.5); LYMPHOCYTES % (AUTO) 14.9 %; MEAN CORPUSCULAR HEMOGLOBIN 29.5 pg (27.0-31.0); MEAN CORPUSCULAR HGB CONC 32.9 g/dL (32.0-36.0); MEAN CORPUSCULAR VOLUME 89.5 fL (81.0-99.0); MEAN PLATELET VOLUME 9.2 fL (7.9-10.8); MONOCYTES # (AUTO) 0.7 10^3/uL (0.0-1.0); MONOCYTES % (AUTO) 5.7 %; NEUTROPHILS # (AUTO) 8.5 10^3/uL (1.5-6.6); NEUTROPHILS % (AUTO) 74.7 %; PLT - PLATELET COUNT 345 10^3/uL (130-450); RED BLOOD COUNT 4.85 10^6/uL (4.20-5.40); RED CELL DISTRIBUTION WIDTH 13.8 % (12.0-15.0); WHITE BLOOD COUNT 11.4 x10^3/uL (4.8-10.8)
[2020-02-05 12:43] LABS: ALBUMIN 4.3 g/dL (3.2-5.5); ALBUMIN/GLOBULIN RATIO 1.2 (1.0-2.2); BILIRUBIN,TOTAL 1.6 mg/dL (0.2-1.0); CALCIUM 9.9 mg/dL (8.5-10.3); CREATININE 0.9 mg/dL (0.4-1.0)
[2020-02-05] MEDS ORDERED: SODIUM CHLORIDE 0.9% 1,000 ML IV STA (12:59)
[2020-02-05] MEDS ORDERED: KETOROLAC 30 MG/ML VIAL IVP STA (12:59)
[2020-02-05] MEDS ORDERED: IOVERSOL 320 100 ML VIAL IVP ONE ×2 (13:10→13:36)
--- NOTE | 2020-02-05 14:28 | CT Report ---
PROCEDURE: Abdomen/Pelvis W INDICATIONS: lower abd pain; recent appendectomy CONTRAST: IV CONTRAST: Optiray 320 ml: 100 PO CONTRAST: *NO PO CONTRAST TECHNIQUE: After the administration of intravenous contrast, 5 mm thick sections acquired from the diaphragms to the symphysis. 5 mm thick coronal and sagittal reformats were acquired. For radiation dose reducti on, the following was used: automated exposure control, adjustment of mA and/or kV according to carson ent size. COMPARISON: 01/23/2020 FINDINGS: Image quality: Excellent. ABDOMEN: Lung bases: Lung bases are clear. Heart size is normal. Solid organs: Liver and spleen are normal in size and enhancement. Gallbladder is unremarkable Dinesh iary system is non dilated. Pancreas enhances normally. No adrenal nodules. Kidneys demonstrate no rmal size and enhancement, without hydronephrosis. Peritoneum and bowel: Bowel loops demonstrate normal wall thickness and caliber. No free fluid or a ir. Interval appendectomy. No postop abscess. Nodes and vessels: No retroperitoneal or mesenteric adenopathy by size criteria. Aorta and inferior vena cava are normal in size. Miscellaneous: No ventral hernias. PELVIS: Genitourinary: Bladder wall thickness is normal. Miscellaneous: No inguinal hernias or adenopathy. Fibroid uterus with multiple prominent fibroids in cluding a predominantly exophytic fibroid anteriorly which measures 10.9 cm in craniocaudal dimension and and compresses the bladder. There are fibroids with submucosal component. Bones: No suspicious bony lesions. No vertebral body compression fractures. IMPRESSION: 1. Recent appendectomy. No evidence of post appendectomy complication. 2. Fibroid uterus with numerous large fibroids, possibly resulting in bulk related symptoms and poten tially bleeding symptoms Reviewed by: Deejay Dejesus MD on 02/05/2020 2:27 PM PST Approved by: Deejay Dejesus MD on 02/05/2020 2:27 PM PST Station ID: [id number]
[2020-02-05] MEDS ORDERED: HYDROmorphone 1 MG/ML CARPUJECT IVP STA (16:46)
[2020-02-05] MEDS ORDERED: ONDANSETRON 4 MG/2 ML VIAL IVP STA (16:46)
[2020-02-05 21:00] VITALS: BP 130/81
--- NOTE | 2020-02-05 21:13 | Ultrasound Report ---
PROCEDURE: Pelvic w/Transvag+Doppler Comp INDICATIONS: pelvic pain, R TECHNIQUE: Real-time scanning was performed of the pelvic organs, with image documentation. Additional endovagi nal scanning was necessary due to incomplete visualization of the adnexal and endometrial structures by transabdominal scanning. COMPARISON: CT abdomen and pelvis dated 02/05/2020. FINDINGS: Study limited by patient scanning characteristics and patient not wanting the transvaginal component of this exam. Transabdominal scanning: Limited scanning through the kidneys shows no hydronephrosis. No pathologi c free abdominal or pelvic fluid. Endovaginal scanning: Uterus: Uterus measures 15.1 x 5.9 x 10.5 cm. Multiple subserosal uterine fibroids are redemonstrated . The 3 largest are measured. One is noted in the right fundus measuring 7.3 x 7.2 x 7.6 cm. Left [place] body fibroid measures 9.2 x 6.6 x 7.9 cm. A posterior left uterine fundal fibroid measures 2.4 x 2.2 x 3.1 cm. The endometrium measures 10 mm in combined thickness. Ovaries: Right ovary measures 2.0 x 1.3 x 2.3 cm. Ovarian volume measures 3 mL. Left ovary measures 2.4 x 1.8 x 2.1 cm with ovarian volume of 4.8 mL. No suspicious ovarian or adnexal mass lesions. Vasc ular waveforms are noted in the bilateral ovaries. IMPRESSION: 1. Normal sonographic evaluation of the bilateral ovaries without evidence for torsion. 2. Enlarged, multi fibroid uterus. Reviewed by: Luis Carlos Wolfe MD on 02/05/2020 9:11 PM PST Approved by: Luis Carlos Wolfe MD on 02/05/2020 9:11 PM PST Station ID: [id number]
== END 2020-02-05 21:43 | disposition home or self-care (01) ==
LOC: ED 11:35
DX: D25.2 Subserosal leiomyoma of uterus (principal); R10.31 Right lower quadrant pain; R10.32 Left lower quadrant pain; R11.0 Nausea; Z90.49 Acquired absence of other specified parts of digestive tract
CPT/HCPCS: 36415; 74177; 76830; 76856; 80053; 81001; 81025; 83690; 85025; 93975; 96374; 96375; 99284; A9270; J1170; Q9967; 81003; 87086

== ENCOUNTER 2020-03-06 14:44 | Outpatient (CLI) | payer BC | END 2020-03-06 14:45 | disposition home or self-care (01) | LOC: COV 14:44 | PROVIDERS: ATTEND Obstetrics & Gynecology | DX: Z01.812 Encounter for preprocedural laboratory examination (principal); Z20.828 Contact with and (suspected) exposure to other viral communicable diseases; D25.9 Leiomyoma of uterus, unspecified; D64.9 Anemia, unspecified ==

== ENCOUNTER 2020-03-10 08:15 | Outpatient (CLI) | payer BC | END 2020-03-10 08:16 | disposition home or self-care (01) | LOC: LAB 08:15 | PROVIDERS: ATTEND Obstetrics & Gynecology | DX: Z01.812 Encounter for preprocedural laboratory examination (principal); D25.9 Leiomyoma of uterus, unspecified; D64.9 Anemia, unspecified | CPT/HCPCS: 36415; 86850; 86900; 86901; 86920 ==

== ENCOUNTER 2020-03-11 06:29 | Day surgery (SDC) | payer BC ==
[~2020-03-11 06:29] MED LIST: ACETAMINOPHEN 1,000 MG/100 ML 100 ML IV ONE; CELECOXIB 100 MG CAPSULE PO ONE; GABAPENTIN 400 MG CAPSULE ONE; ceFAZolin 2 GM/50 ML 2 GM/50 ML BAG IV ONE
[2020-03-11] MEDS ORDERED: PHENAZOPYRIDINE 100 MG TABLET PO ONE (06:33)
[2020-03-11] MEDS ORDERED: LACTATED RINGERS 1,000 ML IV ONE ×2 (07:08→13:00)
[2020-03-11] MEDS ORDERED: MIDAZOLAM 2 MG/2 ML VIAL ONE (07:14)
[2020-03-11] MEDS ORDERED: fentaNYL 100 MCG/2 ML VIAL ONE (07:14)
[2020-03-11] MEDS ORDERED: ONDANSETRON 4 MG/2 ML VIAL ONE (07:15)
[2020-03-11] MEDS ORDERED: ROCURONIUM 50 MG/5 ML VIAL ONE ×3 (07:15→11:37)
[2020-03-11] MEDS ORDERED: DEXAMETHASONE 4 MG/ML VIAL ONE (07:15)
[2020-03-11] MEDS ORDERED: PROPOFOL 200 MG/20 ML VIAL IVP ONE (07:15)
[2020-03-11] MEDS ORDERED: LIDOCAINE-MPF 2% 5 ML VIAL ONE (07:15)
[2020-03-11] MEDS ORDERED: BUPIVACAINE 0.5%-EPI 1:200000 PF 30 ML VIAL ONE (07:21)
[2020-03-11] MEDS ORDERED: METHYLENE BLUE 0.5% 50 MG/10 ML AMPULE ONE (07:22)
--- NOTE | 2020-03-11 07:33 | ANESTHESIA ---
Pre-Anesthesia VS, & Labs - Diagnosis Uterine Fibroids, Anemia - Procedure LAVH, Salpingectomy, Cysto Vital Signs: Temp Pulse Resp BP Pulse Ox 36.4 C L 53 L 16 135/74 H 99 03/11/20 06:44 03/11/20 06:44 03/11/20 06:44 03/11/20 06:44 03/11/20 06:44 Height: 5 ft 6 in Weight (kg): 79.2 kg Body Mass Index: 28.1 BMI Classification: Overweight - NPO Other (ERAS, liquids 0330) - Is Patient ?: Waiver signed (Just completed period) - Lab Results Current Lab Results: Laboratory Tests 03/11/20 06:59: POC Whole Bld Glucose 104 H Lab results reviewed: Yes Home Medications and Allergies Home Medications: Ambulatory Orders Ibuprofen 1 PRN 03/11/20 Ibuprofen 1 PRN 03/11/20 Allergies/Adverse Reactions: Allergies Allergy/AdvReac Type Severity Reaction Status Date / Time cold medicine Allergy symptoms Uncoded 03/05/20 14:16 of food poisoning Anes History & Medical History - Anesthetic History Anesthesia Complications: reports: No previous complications (Had Appy a month ago with no problems) Family history of Anesthesia Complications: Denies Family history of Malignant Hyperthermia: Denies - Medical History Cardiovascular: reports: High cholesterol Pulmonary: reports: None Gastrointestinal: reports: None Urinary: reports: None Neuro: reports: None Musculoskeletal: reports: None Endocrine/Autoimmune: reports: None Blood Disorders: reports: Anemia Skin: reports: None Smoking Status: Never smoker Psychosocial: reports: Other (PTSD from prevopis record) - Surgical History General: Appendectomy, Colonoscopy Exam General: Alert, Oriented x3, Cooperative, No acute distress Dental: WNL Mouth Opening: Greater than 4 Fingerbreadths Neck Mobility: Normal Mallampati classification: I Thyromental Distance: 4-6 cm Respiratory: Lungs clear Cardiovascular: Regular rate Plan Anesthesia Type: General (ERAS) Consent for Procedure(s) Verified and Reviewed: Yes Code Status: Attempt Resuscitation ASA classification: 1-Healthy patient Is this case an emergency?: No (Discussed anesthetic, consent signed)
[2020-03-11] MEDS ORDERED: ePHEDrine 50 MG/ML VIAL IVP PRN (07:35)
[2020-03-11] MEDS ORDERED: MORPHINE 2 MG/ML CARPUJECT IVP PRN (07:35)
[2020-03-11] MEDS ORDERED: fentaNYL 100 MCG/2 ML VIAL IVP PRN (07:35)
[2020-03-11] MEDS ORDERED: METOCLOPRAMIDE 10 MG/2 ML VIAL IVP PRN (07:35)
[2020-03-11] MEDS ORDERED: NALOXONE 0.4 MG/ML VIAL IVP PRN (07:35)
[2020-03-11] MEDS ORDERED: HYDROmorphone 0.5 MG/0.5 ML SYRINGE IVP PRN (07:35)
[2020-03-11] MEDS ORDERED: ATROPINE ABBOJECT 1 MG/10 ML SYRINGE IVP PRN (07:35)
[2020-03-11] MEDS ORDERED: ONDANSETRON 4 MG/2 ML VIAL IVP PRN (07:35)
[2020-03-11] MEDS ORDERED: BUPIVACAINE 0.5%-EPI 1:200000 PF 30 ML VIAL SUBQ ONE ×3 (07:45)
[2020-03-11] MEDS ORDERED: METHYLENE BLUE 0.5% 50 MG/10 ML AMPULE IR ONE (07:46)
[2020-03-11] MEDS ORDERED: LACTATED RINGERS 1,000 ML IV SCH (08:00)
[2020-03-11] MEDS ORDERED: BUPIVACAINE 0.5% PF 30 ML VIAL ONE (09:41)
[2020-03-11] MEDS ORDERED: ceFAZolin 1 GM VIAL ONE (12:19)
[2020-03-11] MEDS ORDERED: NEOSTIGMINE 1 MG/1 ML 10 ML MDV ONE (12:40)
[2020-03-11] MEDS ORDERED: LIDOCAINE 2% URO-JET 5 ML SYRINGE UR ONE ×2 (12:40→12:45)
[2020-03-11] MEDS ORDERED: HYDROmorphone 1 MG/ML CARPUJECT ONE (12:40)
[2020-03-11] MEDS ORDERED: GLYCOPYRROLATE 1 MG/5 ML VIAL ONE (12:40)
[2020-03-11] MEDS ORDERED: SCOPOLAMINE PATCH TOP PRN (12:51)
[2020-03-11] MEDS ORDERED: HYDROmorphone 1 MG/ML CARPUJECT IVP PRN (12:51)
[2020-03-11] MEDS ORDERED: ONDANSETRON ODT 4 MG TABLET TL PRN (12:51)
[2020-03-11] MEDS ORDERED: oxyCODONE 5 MG TABLET PO PRN (12:51)
[2020-03-11] MEDS ORDERED: SIMETHICONE CHEW 80 MG TABLET PO PRN (12:51)
--- NOTE | 2020-03-11 12:56 | OPERATIVE REPORT ---
Operative Report - General Procedure Date: 03/11/20 Planned Procedure: Total vs laparoscopic assisted vaginal hysterectomy, bilateral salpingectomy, and cytoscopy. Pre-Op Diagnosis: Uterine fibroids, abnormal uterine bleeding, anemia Procedure Performed: Total vaginal hysterectomy, bilateral salpingectomy, and cytoscopy. Repair of small vaginal laceration. Post Op Diagnosis: Same - Procedure Note Primary Surgeon: Elvia Carbajal MD Secondary Surgeon: Evelio Manzanares MD Anesthesia Provider: Marcell Billings CRNA Anesthesia Technique: General ET tube Pathology: Uterus with left tube intact and right tube resected but sent as one specimen with cervix, and left sided broad ligament fibroids as well as avulsed uterine fibroid. Total uterine weight 642g. IV Fluids (mL): 2,000 Estimated Blood Loss (mL): 200 Urine Output (mL): 300 Indications: 50 yo with enlarged fibroid uterus with abnormal vaginal bleeding causing acute blood loss anemia here for definitive surgical management of symptomatic fibroid uterus. Findings: Markedly enlarged uterus with two prominent uterine body fibroids estimated to be more than 8 cm in greatest dimension with multiple smaller fibroids and a left sided broad ligament fibroid. Small fibroid contained within the right adnexa. Bilateral ovaries normal appearing. Postoperative cystoscopy showed normal survey of the bladder and bilateral ureteral jets. Normal tubes and ovaries. Appendix surgically absent. Remainder of abdominal survey unremarkable. Uterine weight 642g. Complications: None - Other Other Information/Narrative: Risks benefits and alternatives of the procedure were reviewed. Consent was again confirmed. Patient was brought to the operating room and underwent general anesthesia. She was placed in dorsal lithotomy position with legs resting in yellowfin stirrups. SCDs were in place and activated. Cefazolin 2 g IV was administered prior to start of procedure. She was prepped and draped in the usual sterile fashion. Surgical timeout was performed. Bimanual exam was performed. Sterile speculum was placed. The cervix was visualized and a total of 10 cc of 0.5% bupivicaine with epinephrine was injected into the uterosacral ligaments. The Flooring Helper uterine manipulator was placed, confirming that the cup was flush with the vaginal fornices. It was attached to the Stitch Fix uterine positioning system. Stacy catheter was placed, the bladder was drained, and the bladder was then back filled with 50 cc of dilute methylene blue. The catheter was then clamped. The base of the umbilicus was anesthetized with intradermal injection of 0.5% Marcaine. A 5 mm skin incision was made with a scalpel. A 5 mm blunt trocar was inserted under direct visualization using Visiport. Once the port was confirmed to be placed intraperitoneally, the abdomen was insufflated to 15 mmHg with CO2 gas Exploration of the abdomen and pelvis was confirmed that no injury was sustained with placement of the trocar. Two additional 5 mm ports were placed in the right and left lower quadrants, taking care to avoid the epigastric ar teries, while under direct visualization via laparoscopic guidance. The abdomen was explored with the laparoscope, with findings as noted. The left fallopian tube was grasped and elevated at the fimbriated end. The underlying mesosalpinx was sealed and resected to the insertion point on the uterine cornua using the Ligasure device. The left fallopian tube was transected at the insertion point of the cornua and removed from the field. The round ligament on the left aspect of the uterus was sealed/transected/and divided. The uterine ovarian ligament was transected using the LigaSure bipolar device. There was a left sided broad ligament firboid that was obscurring the anbatomical landmarks. It was carefully dissected form the broad ligament and placed inthe cul de sac for later removal. A bladder flap was mobilized by dividing the round ligaments using the bipolar cutting forceps, and the peritoneum on the vesicouterine fold was incised to mobilize the bladder. Once the colpotomy ring was skeletonized and in position, the uterine arteries were sealed using the bipolar forceps at the level of the colpotomy ring. This was repeated on the right aspect of the uterus in the same manner although the right tube was left intact and a fibroid in the mesosalpinx was removed with the tube but left intact with the resected adnexa for later removal from the field. The bladder dissection was performed over the colpotomy ring. Colpotomy was performed using monopolar hook and then withthe Harmonic scalpel, resulting in separation of the uterus. The uterus was then delivered through the vagina with significant effort. Upon removal of the uterus, a small right sided vaginal laceration was noted at the posterior fourchette, Itr was repaired with 3-0 Vicryl. No other vaginal lacerations were noted. Attention was then turned to the vaginal cuff closure. The right lower quadrant port was removed and the incision was extended to accommodate a 10 mm port. The 5 mm port was replaced with a 10 mm port. V-Loc suture was passed throught the port. The vaginal cuff was closed with a running suture using V-Loc suture. Closure of the cuff was airtight and abdominal insufflation was maintained post closure. Good hemostasis was noted. At no time was spillage of methylene blue noted in the surgical field. The vaginal cuff was visualized internally and noted to have good hemostasis. Landry-Mary device was placed in the 10 mm port site, which was then closed under direct visualization. The abdomen was partially desufflated. Pedicles were observed under decreased pressure and good hemostasis was again confirmed. Abdomen was then completely desufflated. All instruments were removed from the abdomen. Skin was closed with interrupted subcuticular stitches using 4-0 Monocryl. Dermabond was applied over the suture sites. We then turned our attention to the cystoscopic portion of the procedure. Stacy catheter was removed and the cystoscope was inserted. Bladder was instilled with NS. A survey of the bladder showed no trauma or presence of suture in the bladder topography. Patient had been pretreated with pyridium. Vigorous ureteral jets were observed bilaterally. Cystoscope was removed after bladder was drained. Stacy catheter was replaced. The final sponge needle and instrument counts were correct at completion of the procedure patient was awakened taken to the postanesthesia care unit in stable condition. Dr. Manzanares assisted with suturing, retraction, and completion of their side of the hysterectomy. 22 Modifier: This was a complex case with a uterine weight of 642 g. Procedure required extended surgical time and advanced surgical technique given complexity of case.
[2020-03-11] MEDS ORDERED: KETOROLAC 15 MG/ML VIAL ONE (13:20)
[2020-03-11] MEDS ORDERED: HYDROmorphone 0.5 MG/0.5 ML SYRINGE ONE (13:20)
--- NOTE | 2020-03-11 13:55 | ANESTHESIA POST OP EVALUATION ---
Anesthesia Post Eval - Post Anesthesia Eval Vitals: Last Vital Signs Temp 37.2 C 03/11/20 13:45 Pulse 51 L 03/11/20 13:45 Resp 10 L 03/11/20 13:45 BP 118/69 03/11/20 13:45 Pulse Ox 97 03/11/20 13:45 CV Function Including HR & BP: positive: Stable Pain Control: positive: Satisfactory (Just feels a litle achy) Nausea & Vomiting: positive: Negative Mental Status: positive: Baseline (A little sleepy but awake and oriented. Appropriate.) Respiratory Status: Airway Patent Hydration Status: Satisfactory Anesthesia Complications: positive: None (Taking PO ice chips. Ready to be transferred to galvan.)
[2020-03-11] MEDS: KETOROLAC 30 MG/ML VIAL IVP SCH ×2 (14:19→18:51)
[2020-03-11] MEDS: LACTATED RINGERS 1,000 ML IV SCH ×2 (14:28→18:49)
[2020-03-11] MEDS: ACETAMINOPHEN 500 MG TABLET PO SCH ×2 (17:28→21:51)
[2020-03-11] MEDS: GABAPENTIN 300 MG CAPSULE PO SCH (21:51)
[2020-03-11] MEDS: DOCUSATE SODIUM 100 MG CAPSULE PO SCH (21:52)
[2020-03-12] MEDS: KETOROLAC 30 MG/ML VIAL IVP SCH ×2 (01:09→06:11)
[2020-03-12] MEDS: ACETAMINOPHEN 500 MG TABLET PO SCH ×2 (04:52→12:34)
[2020-03-12 05:10] LABS: BASOPHILS % (AUTO) 0.3 %; EOSINOPHILS # (AUTO) 0.1 10^3/uL (0.0-0.7); EOSINOPHILS % (AUTO) 0.7 %; HGB - HEMOGLOBIN 10.9 g/dL (12.0-16.0); LYMPHOCYTES # (AUTO) 1.7 10^3/uL (1.5-3.5); LYMPHOCYTES % (AUTO) 16.2 %; MEAN CORPUSCULAR HEMOGLOBIN 30.2 pg (27.0-31.0); MEAN CORPUSCULAR HGB CONC 33.2 g/dL (32.0-36.0); MEAN CORPUSCULAR VOLUME 90.9 fL (81.0-99.0); MEAN PLATELET VOLUME 9.2 fL (7.9-10.8); MONOCYTES # (AUTO) 0.8 10^3/uL (0.0-1.0); MONOCYTES % (AUTO) 8.1 %; NEUTROPHILS # (AUTO) 7.6 10^3/uL (1.5-6.6); NEUTROPHILS % (AUTO) 74.4 %; PLT - PLATELET COUNT 242 10^3/uL (130-450); RED BLOOD COUNT 3.61 10^6/uL (4.20-5.40); RED CELL DISTRIBUTION WIDTH 13.5 % (12.0-15.0); WHITE BLOOD COUNT 10.2 x10^3/uL (4.8-10.8)
[2020-03-12] MEDS: LACTATED RINGERS 1,000 ML IV SCH (05:30)
[2020-03-12] MEDS: GABAPENTIN 300 MG CAPSULE PO SCH ×2 (06:11→14:52)
[2020-03-12] MEDS ORDERED: ENOXAPARIN 40 MG/0.4 ML SYRINGE SUBQ SCH (09:00)
[2020-03-12] MEDS: DOCUSATE SODIUM 100 MG CAPSULE PO SCH (10:28)
[2020-03-12 19:31] VITALS: BP 131/75
== END 2020-03-12 19:33 | disposition home or self-care (01) ==
LOC: SDS 06:29 → MS2 14:18 → SDS 03-12 19:33
PROVIDERS: ATTEND Obstetrics & Gynecology
PROC: 0UT7FZZ Resection of Bilateral Fallopian Tubes, Via Natural or Artificial Opening With Percutaneous Endoscopic Assistance (ICD-10-PCS; 2020-03-11)
PROC: 0UT9FZZ Resection of Uterus, Via Natural or Artificial Opening With Percutaneous Endoscopic Assistance (ICD-10-PCS; principal; 2020-03-11 07:30)
DX: D25.9 Leiomyoma of uterus, unspecified (principal); N93.9 Abnormal uterine and vaginal bleeding, unspecified; D64.9 Anemia, unspecified; R10.2 Pelvic and perineal pain
CPT/HCPCS: 36415; 58554; 85025; A9270; J0131; J0690; J1170; J1650; J7120

== ENCOUNTER 2020-04-16 17:00 | Outpatient (CLI) | payer BC ==
[2020-04-16] MEDS ORDERED: IOVERSOL 320 100 ML VIAL IVP ONE ×2 (17:20→18:50)
[2020-04-16] MEDS ORDERED: IOPAMIDOL-300 50 ML VIAL ONE (17:20)
[2020-04-16] MEDS ORDERED: IOPAMIDOL-300 50 ML VIAL PO ONE (18:49)
--- NOTE | 2020-04-16 19:10 | CT Report ---
PROCEDURE: Abdomen/Pelvis W INDICATIONS: ABD PAIN CONTRAST: IV CONTRAST: Optiray 320 ml: 100 PO CONTRAST: Isovue 300 ml50 TECHNIQUE: After the administration of oral and intravenous contrast, 5 mm thick sections acquired from the diap hragms to the symphysis. 5 mm thick coronal and sagittal reformats were acquired. For radiation dos e reduction, the following was used: automated exposure control, adjustment of mA and/or kV accordin g to patient size. COMPARISON: CT abdomen and pelvis 02/05/2020. FINDINGS: Image quality: Excellent. ABDOMEN: Lung bases: Lung bases are clear. Heart size is normal. Solid organs: Liver and spleen are normal in size and enhancement. Gallbladder is unremarkable. Bi liary system is non dilated. Pancreas enhances normally. No adrenal nodules. Kidneys demonstrate n ormal size and enhancement, without hydronephrosis. Peritoneum and bowel: Bowel loops demonstrate normal wall thickness and caliber. Clip in the right lower quadrant. No free fluid or air. Nodes and vessels: No retroperitoneal or mesenteric adenopathy by size criteria. Aorta and inferior vena cava are normal in size. Miscellaneous: No ventral hernias. PELVIS: Genitourinary: Bladder is unremarkable. Suspect small right ovarian cyst, (3/59). Left ovary is not identified. Interval hysterectomy. Vaginal cuff is within normal limits. Miscellaneous: No inguinal hernias or adenopathy. Bones: No suspicious bony lesions. No vertebral body compression fractures. IMPRESSION: 1. No acute inflammatory process is identified. No free fluid. 2. Interval hysterectomy. 3. Suspect small right ovarian cyst. Reviewed by: Zay Kelly MD on 04/16/2020 7:08 PM [facility] Approved by: Zay Kelly MD on 04/16/2020 7:08 PM PST Station ID: [id number]
== END 2020-04-16 17:01 | disposition home or self-care (01) ==
LOC: DI 17:00
PROVIDERS: ATTEND Physician Assistant Medical
DX: R10.9 Unspecified abdominal pain (principal)
CPT/HCPCS: 36415; 74177; 80053; 85025; Q9967

== ENCOUNTER 2020-04-16 17:05 | Outpatient (CLI) | payer BC ==
[2020-04-16 17:45] LABS: BASOPHILS # (AUTO) 0.1 10^3/uL (0.0-0.1); BASOPHILS % (AUTO) 1.2 %; EOSINOPHILS # (AUTO) 0.3 10^3/uL (0.0-0.7); EOSINOPHILS % (AUTO) 4.9 %; HGB - HEMOGLOBIN 14.3 g/dL (12.0-16.0); LYMPHOCYTES # (AUTO) 2.2 10^3/uL (1.5-3.5); LYMPHOCYTES % (AUTO) 32.1 %; MEAN CORPUSCULAR HEMOGLOBIN 29.1 pg (27.0-31.0); MEAN CORPUSCULAR HGB CONC 32.6 g/dL (32.0-36.0); MEAN PLATELET VOLUME 9.2 fL (7.9-10.8); MONOCYTES # (AUTO) 0.5 10^3/uL (0.0-1.0); MONOCYTES % (AUTO) 7.9 %; NEUTROPHILS # (AUTO) 3.6 10^3/uL (1.5-6.6); NEUTROPHILS % (AUTO) 53.8 %; PLT - PLATELET COUNT 286 10^3/uL (130-450); RED BLOOD COUNT 4.92 10^6/uL (4.20-5.40); RED CELL DISTRIBUTION WIDTH 12.8 % (12.0-15.0); WHITE BLOOD COUNT 6.7 x10^3/uL (4.8-10.8)
[2020-04-16 17:58] LABS: ALBUMIN/GLOBULIN RATIO 1.5 (1.0-2.2); BILIRUBIN,TOTAL 0.9 mg/dL (0.2-1.0); CALCIUM 9.9 mg/dL (8.5-10.3); CREATININE 0.9 mg/dL (0.4-1.0); TOTAL PROTEIN 8.4 g/dL (6.7-8.2)
== END 2020-04-16 17:06 | disposition home or self-care (01) ==
LOC: LAB 17:05
PROVIDERS: ATTEND Physician Assistant Medical
DX: R10.9 Unspecified abdominal pain (principal)
CPT/HCPCS: 36415; 80053; 85025

== ENCOUNTER 2020-04-17 09:02 | Outpatient (CLI) | payer BC | END 2020-04-17 23:59 | disposition home or self-care (01) | LOC: LAB.R 09:02 | PROVIDERS: ATTEND Physician Assistant Medical | DX: R10.9 Unspecified abdominal pain (principal) | CPT/HCPCS: 81599; 87045; 87046; 87427; 87493 ==

== ENCOUNTER 2020-07-27 17:44 | Outpatient (CLI) | payer BC ==
--- NOTE | 2020-07-28 09:41 | XRAY Report ---
PROCEDURE: Foot 3 View RT INDICATIONS: PLANTAR FASCITIS TECHNIQUE: 3 views of the foot were acquired. COMPARISON: None FINDINGS: Bones: There is mild pes planus with weightbearing. No fracture or dislocation. Calcaneal pitch angle measures 16.6 degree. Well-defined plantar calcaneal enthesophyte is seen. No fracture or dislocatio n. No suspicious bony lesions. Soft tissues: There is suggestion of plantar soft tissue thickening. No tibiotalar joint effusion. A chilles tendon appears normal. IMPRESSION: Well-defined plantar calcaneal enthesophyte with mild plantar soft tissue thickening concerning for p lantar fasciitis. Mild pes planus. No fracture or dislocation. Reviewed by: Shan Shafer MD on 07/28/2020 9:39 AM PDT Approved by: Shan Shafer MD on 07/28/2020 9:39 AM PDT Station ID: [id number]
== END 2020-07-27 17:45 | disposition home or self-care (01) ==
LOC: DI.N 17:44
PROVIDERS: ATTEND Physician Assistant Medical
DX: M77.31 Calcaneal spur, right foot (principal); M21.41 Flat foot [pes planus] (acquired), right foot; M72.2 Plantar fascial fibromatosis

== ENCOUNTER 2021-02-08 14:15 | Outpatient (CLI) | payer BC ==
--- NOTE | 2021-02-09 14:08 | Mammography Report ---
BILATERAL DIGITAL SCREENING MAMMOGRAM 3D/2D: 02/08/2021 CLINICAL: Routine screening. Comparison is made to exams dated: 02/14/2018 mammogram, 01/10/2017 mammogram, 11/25/2015 mammogram, mammogram, 09/22/2014 ultrasound biopsy, and 09/11/2014 mammogram - [facility] . There are scattered fibroglandular elements in both breasts. No significant masses, calcifications, or other findings are seen in either breast. There has been no significant interval change. IMPRESSION: NEGATIVE There is no mammographic evidence of malignancy. A 1 year screening mammogram is recommended. This exam was interpreted at Station ID: [id number]. NOTE: For mammograms, a report in lay terms will be sent to the patient. Approximately 15% of breast malignancies will not be visualized mammographically. In the management of a palpable breast mass, a negative mammogram must not discourage biopsy of a clinically suspicious lesion. Electronically Signed By: Manny Hargrove M.D., jr/jh:02/08/2021 15:32:51 ACR BI-RADS Category 1: Negative 3341F PARENCHYMAL PATTERN: (A) - The breast(s) demonstrate(s) scattered fibroglandular densities. BI-RADS CATEGORY: (1) - 1 RECOMMENDATION: (ANNUAL) - Recommend routine annual screening mammography. [id number] 1 year screening LATERALITY: (B)
== END 2021-02-08 14:16 | disposition home or self-care (01) ==
LOC: DI 14:15
DX: Z12.31 Encounter for screening mammogram for malignant neoplasm of breast (principal)

== ENCOUNTER 2022-01-06 13:54 | Outpatient (CLI) | payer OTHER ==
--- NOTE | 2022-01-06 15:19 | Ultrasound Report ---
PROCEDURE: Chest INDICATIONS: Left breast lump. TECHNIQUE: Real-time scanning was performed, and a suitable site was marked by the pan shover for thoracentesis to be performed by the referring clinician. COMPARISON: None. FINDINGS: Of the patient's palpable area of concern in the inferior aspect of the left breasts, there is a very superficial fat echogenicity mass which appears well encapsulated and is bilobed. There is no throug h transmission of sound or shadowing. The mass measures approximately 2.5 x 0.9 x 2.1 cm. The mass is less than 5-8 mm from the skin surface. IMPRESSION: Superficial mass in the subcutaneous fat, well-circumscribed and demonstrating echogenicity identical to that of the adjacent fat is consistent with a lipoma. Reviewed by: Manny Hargrove MD on 01/06/2022 3:17 PM PDT Approved by: Manny Hargrove MD on 01/06/2022 3:17 PM PDT Station ID: [id number]
== END 2022-01-06 13:55 | disposition home or self-care (01) ==
LOC: DI 13:54
PROVIDERS: ATTEND Surgery
DX: N63.20 Unspecified lump in the left breast, unspecified quadrant (principal)

== ENCOUNTER 2022-01-26 07:10 | Outpatient (CLI) | payer OTHER ==
[2022-01-26 13:11] LABS: CHOL/HDL RATIO 3.8 (<4.4); CHOLESTEROL 308 mg/dL; HDL CHOLESTEROL 82 mg/dL; LDL CHOLESTEROL,CALCULATED 201 mg/dL; LDL/HDL RATIO 2.5 (<4.4); TRIGLYCERIDES 124 mg/dL; VLDL CHOLESTEROL 25 mg/dL
== END 2022-01-26 07:11 | disposition home or self-care (01) ==
LOC: LAB.N 07:10
PROVIDERS: ATTEND Physician Assistant Medical
DX: E78.5 Hyperlipidemia, unspecified (principal)
CPT/HCPCS: 36415; 80061; 83721

== ENCOUNTER 2022-04-26 06:44 | Outpatient (CLI) | payer BC, OTHER ==
[2022-04-26 07:14] LABS: CHOLESTEROL 156 mg/dL; HDL CHOLESTEROL 78 mg/dL; LDL CHOLESTEROL,CALCULATED 62 mg/dL; LDL/HDL RATIO 0.8 (<4.4); TRIGLYCERIDES 81 mg/dL; VLDL CHOLESTEROL 16 mg/dL
== END 2022-04-26 06:45 | disposition home or self-care (01) ==
LOC: LAB 06:44
PROVIDERS: ATTEND Physician Assistant Medical
DX: E78.5 Hyperlipidemia, unspecified (principal)
CPT/HCPCS: 36415; 80061; 83721

== ENCOUNTER 2022-11-30 08:48 | Outpatient (CLI) | payer OTHER ==
--- NOTE | 2022-12-01 11:22 | Mammography Report ---
BILATERAL DIGITAL SCREENING MAMMOGRAM 3D/2D: 11/30/2022 CLINICAL: Routine screening. Comparison is made to exams dated: 10/21/2021 mammogram, 02/08/2021 mammogram, 02/14/2018 mammogram, a nd 01/10/2017 mammogram - [facility]. Both breasts are heterogeneously dense, which may obscure small masses (category c / 51-75% glandular tissue). There is a biopsy clip in the left breast. No significant masses, calcifications, or other findings are seen in either breast. There has been no significant interval change. IMPRESSION: NEGATIVE There is no mammographic evidence of malignancy. A 1 year screening mammogram is recommended. Based on the Tyrer Cuzick model (a risk assessment model) the patients lifetime risk is 9.1% and her 10 year risk is 2.5%. According to the ACR, ACS, and NCCN guidelines, an annual breast MRI exam esme g with mammogram is recommended if the patients lifetime risk is 20% or greater. This exam was interpreted at Station ID: [id number]. NOTE: For mammograms, a report in lay terms will be sent to the patient. Approximately 15% of breast malignancies will not be visualized mammographically. In the management of a palpable breast mass, a negative mammogram must not discourage biopsy of a clinically suspicious lesion. Electronically Signed By: Zay [email or web address]/jh:11/30/2022 18:30:24 letter sent: No_Letter ACR BI-RADS Category 1: Negative 3341F PARENCHYMAL PATTERN: (D) - The breast(s) demonstrate(s) heterogeneously dense fibroglandular denise mcgill. BI-RADS CATEGORY: (1) - 1 Mammogram [id number] 1 year screening LATERALITY: (B)
== END 2022-11-30 08:49 | disposition home or self-care (01) ==
LOC: DI 08:48
DX: Z12.31 Encounter for screening mammogram for malignant neoplasm of breast (principal)